=== PATIENT | female | born 1980 | race Asian ===

== ENCOUNTER 2016-11-17 10:30 | Inpatient (IN) | payer SELFPAY ==
[~2016-11-17] VITALS: Ht 165.1 cm; Wt 66.2 kg
[2016-11-17] MEDS ORDERED: OXYTOCIN/NORMAL SALINE 1,000 ML IV SCH (11:40)
[2016-11-17] MEDS ORDERED: LR 1,000 ML IV ONE (11:40)
[2016-11-17] MEDS ORDERED: LR 1,000 ML IV SCH (11:40)
[2016-11-17 11:45] VITALS: BP 129/80; RESP 18; TEMP 98.3
[2016-11-17] MEDS ORDERED: TERBUTALINE SULFATE 1 MG/ML VIAL SUBCUT ONE (11:45)
[2016-11-17] MEDS ORDERED: NALBUPHINE HCL 10 MG/ML AMP IVP PRN (11:45)
[2016-11-17 12:14] LABS: BASOPHILS % (AUTO) 0.3 % (0.0-2.0); EOSINOPHILS % (AUTO) 0.4 % (0.0-4.0); HEMATOCRIT 34.8 % (36-48); LYMPHOCYTES # (AUTO) 1.5 K/uL (1.0-5.5); LYMPHOCYTES % (AUTO) 15.2 % (20.5-51.5); MEAN CORPUSCULAR HEMOGLOBIN 29 pg (27-31); MEAN CORPUSCULAR HGB CONC 35 % (32-36); MEAN CORPUSCULAR VOLUME 84 fL (79.0-98.0); MONOCYTES # (AUTO) 0.6 K/uL (0.0-1.0); MONOCYTES % (AUTO) 6.4 % (1.7-9.3); NEUTROPHILS # (AUTO) 7.5 K/uL (1.8-7.7); NEUTROPHILS % (AUTO) 77.7 % (40.0-70.0); PLATELET COUNT (AUTO) 143 K/uL (130-430); RED BLOOD CELL COUNT(AUTO) 4.14 MIL/uL (4.2-6.2); RED CELL DISTRIBUTION WIDTH 17.2 % (9.0-15.0); WHITE BLOOD COUNT (AUTO) 9.6 K/uL (4.8-10.8)
[2016-11-17] MEDS ORDERED: FENT2mCg/mL-ROPIVA0.2%/NS EPID 150 ML EP ONE (14:32)
[2016-11-17] MEDS ORDERED: LR 500 ML IV ONE (16:09)
[2016-11-17] MEDS ORDERED: ePHEDrine sulfate 50 MG/ML VIAL IVP PRN (16:15)
[2016-11-17] MEDS ORDERED: FENT2mCg/mL-ROPIVA0.2%/NS EPID 150 ML EP SCH (16:15)
[2016-11-17] MEDS ORDERED: METHYLERGONOVINE MALEATE 0.2 MG/ML AMP ONE (22:15)
[2016-11-17] MEDS ORDERED: OXYCODONE/ACETAMINOPHEN 5-325 TABLET PO PRN (23:00)
[2016-11-17] MEDS ORDERED: MEASLES,MUMPS&RUBELLA VACC/PF 12500 UNIT/0.5 ML VIAL SUBQ PRN (23:00)
[2016-11-17] MEDS ORDERED: IBUPROFEN 800 MG TABLET PO PRN (23:00)
[2016-11-17] MEDS ORDERED: TEMAZEPAM 15 MG CAPSULE PO PRN (23:00)
[2016-11-17] MEDS ORDERED: HYDROcodone/ACETAMIN 5-325 MG TAB (NORCO/ VICODIN) PO PRN (23:00)
[2016-11-17] MEDS ORDERED: METHYLERGONOVINE MALEATE 0.2 MG/ML AMP IM PRN (23:00)
[2016-11-17] MEDS ORDERED: DIPH-TET-PERTUS Vaccine 0.5 ML VIAL (ADACEL) I.M. PRN (23:00)
[2016-11-17] MEDS ORDERED: OXYTOCIN 10 UNIT/ML VIAL IM PRN (23:00)
[2016-11-17] MEDS ORDERED: DERMOPLAST SPRAY TP PRN (23:00)
[2016-11-18 08:19] LABS: HEMOGLOBIN 11.3 g/dL (12.0-16.0)
[2016-11-18] MEDS ORDERED: SENNOSIDES/DOCUSATE SODIUM 1 TAB TABLET(SENOKOT-S) PO SCH (21:00)
== END 2016-11-19 16:00 | disposition home or self-care (01) | DRG 775 ==
LOC: SPU 10:30 → OBSVTOIN 10:30
PROVIDERS: ADMIT Obstetrics & Gynecology; ATTEND Obstetrics & Gynecology
PROC: 0KQM0ZZ Repair Perineum Muscle, Open Approach (ICD-10-PCS; principal; 2016-11-17)
PROC: 10E0XZZ Delivery of Products of Conception, External Approach (ICD-10-PCS; 2016-11-17)
PROC: 3E0S3CZ (ICD-10-PCS; 2016-11-17)
PROC: 00HU33Z Insertion of Infusion Device into Spinal Canal, Percutaneous Approach (ICD-10-PCS; 2016-11-17)
DX: O70.1 Second degree perineal laceration during delivery (principal); Z37.0 Single live birth; Z3A.39 39 weeks gestation of pregnancy
CPT/HCPCS: 36415; 85018-TC; 85025; 86592; 86886; 86900; 86901; J2210; J2590; J3010; J7120